=== PATIENT | male | born 1990 | race Caucasian/White ===

== ENCOUNTER 2025-03-09 12:25 | Emergency (ER) | payer OTHER ==
[~2025-03-09] VITALS: Ht 167.6 cm; Wt 82.0 kg
[2025-03-09 12:27] VITALS: O2SAT 99
[2025-03-09] MEDS: ONDANSETRON HCL 4MG/2ML INJ IV ONE (12:56)
[2025-03-09] MEDS: SODIUM CHLORIDE 0.9% 1,000 ML IV ONE (12:56)
[2025-03-09 12:57] LABS: BASOPHILS % 0.4 % (0.0-2.0); EOSINOPHILS % 8.4 % (0.0-5.0); HEMATOCRIT. 51.1 % (42.0-52.0); LYMPHOCYTES % 41.3 % (20.0-50.0); MEAN CORPUSCULAR HEMOGLOBIN 29.3 pg (28.0-32.0); MEAN CORPUSCULAR HGB CONC 33.2 g/dL (31.0-37.0); MEAN CORPUSCULAR VOLUME 88.3 fL (80.0-94.0); MEAN PLATELET VOLUME 9.8 fl (7.4-10.4); MONOCYTES % 5.1 % (2.0-8.0); NEUTROPHILS % 44.8 % (40.0-76.0); PLATELET 210 x1000/uL (130-400); RED BLOOD CELL COUNT 5.79 mill/uL (4.7-6.1); RED CELL DISTRIBUTION WIDTH 14.2 % (11.6-14.6)
[2025-03-09 13:02] LABS: CHLORIDE 106 mEq/L (98-107); POTASSIUM 3.6 mEq/L (3.5-5.1); SODIUM 139 mEq/L (136-145)
[2025-03-09 13:03] LABS: CARBON DIOXIDE 14 mEq/L (21-32)
[2025-03-09 13:04] LABS: CALCIUM 9.4 mg/dL (8.7-10.4)
[2025-03-09 13:08] LABS: CREATININE 1.1 mg/dL (0.6-1.3); GLUCOSE 146 mg/dL (70-105)
[2025-03-09 13:09] LABS: ETHANOL BLOOD < 10 mg/dL (<10); UREA NITROGEN BLOOD 14 mg/dL (9-23)
[2025-03-09 14:21] VITALS: BP 136/74; PULSE 88; RESP 18; TEMP 37; O2SAT 99
== END 2025-03-09 14:22 | disposition home or self-care (01) ==
LOC: ER 12:25
DX: T67.1XXA Heat syncope, initial encounter (principal); R56.9 Unspecified convulsions; R03.0 Elevated blood-pressure reading, without diagnosis of hypertension
CPT/HCPCS: 80048; 80320; 83735; 85025; 36415; 70450; 93005; 96374; 99285; J2405; J7030; Z7610 ×2; A4606; G0480